=== PATIENT | female | born 1980 | race Two or more races ===

== ENCOUNTER 2018-07-16 09:12 | Outpatient (CLI) | payer OTHER | END 2018-07-16 09:42 | disposition home or self-care (01) | LOC: RX STUDY 09:12 | DX: N97.1 Female infertility of tubal origin (principal) ==

== ENCOUNTER 2019-06-14 07:44 | Outpatient (CLI) | payer OTHER | END 2019-06-14 08:26 | disposition home or self-care (01) | LOC: NST 07:44 | DX: Z34.82 Encounter for supervision of other normal pregnancy, second trimester (principal) ==

== ENCOUNTER 2019-07-05 15:21 | Outpatient (CLI) | payer OTHER | END 2019-07-05 15:35 | disposition home or self-care (01) | LOC: NST 15:21 | DX: Z34.83 Encounter for supervision of other normal pregnancy, third trimester (principal) ==

== ENCOUNTER 2019-07-21 11:58 | Outpatient (CLI) | payer OTHER | END 2019-07-21 12:44 | disposition home or self-care (01) | LOC: NST 11:58 | DX: Z34.83 Encounter for supervision of other normal pregnancy, third trimester (principal) ==

== ENCOUNTER 2019-08-04 08:58 | Outpatient (CLI) | payer OTHER | END 2019-08-04 13:38 | disposition home or self-care (01) | LOC: NST 08:58 | DX: Z34.83 Encounter for supervision of other normal pregnancy, third trimester (principal) ==

== ENCOUNTER 2019-08-18 08:32 | Outpatient (CLI) | payer OTHER | END 2019-08-18 10:44 | disposition home or self-care (01) | LOC: NST 08:32 | DX: Z34.83 Encounter for supervision of other normal pregnancy, third trimester (principal) ==

== ENCOUNTER 2019-08-25 10:09 | Outpatient (CLI) | payer OTHER | END 2019-08-25 13:43 | disposition home or self-care (01) | LOC: NST 10:09 | DX: Z34.83 Encounter for supervision of other normal pregnancy, third trimester (principal) ==

== ENCOUNTER 2019-09-01 08:44 | Outpatient (CLI) | payer OTHER | END 2019-09-01 10:53 | disposition home or self-care (01) | LOC: NST 08:44 | DX: Z34.83 Encounter for supervision of other normal pregnancy, third trimester (principal) ==

== ENCOUNTER 2019-09-01 11:33 | Inpatient (IN) | payer OTHER ==
[~2019-09-01] VITALS: Ht 157.5 cm; Wt 2.3 kg
[2019-09-03] MEDS ORDERED: OBTREX DHA PRE1 EACH PO (15:38)
[2019-09-03] MEDS ORDERED: ADALAT CC30 MG PO ×2 (15:38)
== END 2019-09-11 15:01 | disposition home or self-care (01) | DRG 788 ==
LOC: OB/GYN 09-08 05:32 → O/R 09-08 05:32 → OB/GYN 09-08 10:15
PROVIDERS: ADMIT Obstetrics & Gynecology Maternal & Fetal Medicine
PROC: 4A1HXCZ Monitoring of Products of Conception, Cardiac Rate, External Approach (ICD-10-PCS; 2019-09-08)
PROC: 10D00Z1 Extraction of Products of Conception, Low, Open Approach (ICD-10-PCS; principal; 2019-09-08 10:15)
DX: O82 Encounter for cesarean delivery without indication (principal); O64.1XX0 Obstructed labor due to breech presentation, not applicable or unspecified; O30.043 Twin pregnancy, dichorionic/diamniotic, third trimester; Z3A.36 36 weeks gestation of pregnancy; Z37.2 Twins, both liveborn

== ENCOUNTER → 2019-09-05 | Outpatient (CLI) | payer OTHER ==
[~2019-09-05] MED LIST: ADALAT CC30 MG PO; OBTREX DHA PRE1 EACH PO
== END | disposition home or self-care (01) ==
LOC: NST 16:37
DX: Z34.83 Encounter for supervision of other normal pregnancy, third trimester (principal)

== ENCOUNTER 2020-10-02 09:16 | Outpatient (CLI) | payer OTHER | END 2020-10-02 09:48 | disposition home or self-care (01) | LOC: MAMO-SONO 09:16 | PROVIDERS: ATTEND Obstetrics & Gynecology Maternal & Fetal Medicine | DX: N60.01 Solitary cyst of right breast (principal); R92.2 Inconclusive mammogram; N64.59 Other signs and symptoms in breast ==